=== PATIENT | female | born 2000 | race Hispanic/Latino ===

== ENCOUNTER 2022-06-25 16:11 | Emergency (ER) | payer BC | END 2022-06-25 17:45 | disposition home or self-care (01) | LOC: CSHERS 16:11 | DX: J39.2 Other diseases of pharynx (principal) | CPT/HCPCS: 99283 ==

== ENCOUNTER 2022-11-18 12:42 | Emergency (ER) | payer BC | END 2022-11-18 15:37 | disposition home or self-care (01) | LOC: CSHERS 12:42 | DX: J01.90 Acute sinusitis, unspecified (principal); F17.290 Nicotine dependence, other tobacco product, uncomplicated | CPT/HCPCS: 99283 ==